=== PATIENT | male | born 1980 | race African-American/Black ===

== ENCOUNTER 2019-04-07 16:03 | Emergency (ER) | payer OTHER ==
[2019-04-07 16:17] VITALS: BP 113/65; PULSE 57; TEMP 98; BMI 29.0
[2019-04-07] MEDS ORDERED: SODIUM CHLORIDE 1,000 ML IV STA (16:56)
--- NOTE | 2019-04-07 17:00 | PDOC ---
History of Present Illness - General Chief Complaint: Syncope/Near Syncope Stated Complaint: SYNCOPE Time Seen by Provider: 04/07/19 16:25 - History of Present Illness Initial Comments: 04/07/19 16:59 39m with pmh of Ulcerative colitis and a hip labrum tear sent from orthopedist office for 3min episode of dizziness and diaphoresis. Has had diarrhea for the past 3-4 days. which is unusual for his disease course. Episode was unprovoked, he was just sitting on the examination table. Denies chest pain, shortness of breath, abdominal pain, nausea, vomiting. Had similar episode in the past that self-resolved. Used to be on medication for his UC but had to stop due to increased number of infections. Patient now asymptomatic. Past History - Past Medical History Allergies/Adverse Reactions: Allergies Allergy/AdvReac Type Severity Reaction Status Date / Time No Known Allergies Allergy Verified 04/07/19 16:09 Home Medications: Ambulatory Orders NK [No Known Home Medication] 04/07/19 COPD: No GI Disorders: Yes (uc) - Psycho Social/Smoking Cessation Hx Smoking History: Never smoked Have you smoked in the past 12 months: No Information on smoking cessation initiated: No Hx Alcohol Use: No Drug/Substance Use Hx: No Review of Systems - Review of Systems Able to Perform ROS?: Yes Is the patient limited Syriac proficient: No Constitutional: No: Symptoms Reported HEENTM: No: Symptoms Reported Respiratory: No: Symptoms reported Cardiac (ROS): No: Symptoms Reported ABD/GI: No: Symptoms Reported : No: Symptoms Reported Musculoskeletal: No: Symptoms Reported Integumentary: No: Symptoms Reported Neurological: Yes: See HPI All Other Systems: Reviewed and Negative *Physical Exam - Vital Signs Last Vital Signs Temp Pulse Resp BP Pulse Ox 98 F 57 L 18 113/65 100 04/07/19 16:13 04/07/19 16:13 04/07/19 16:13 04/07/19 16:13 04/07/19 16:13 - Physical Exam General Appearance: Yes: Nourished, Appropriately Dressed. No: Apparent Distress HEENT: positive: EOMI, Normal ENT Inspection Respiratory/Chest: positive: Lungs Clear, Normal Breath Sounds. negative: Chest Tender, Respiratory Distress Cardiovascular: positive: Regular Rhythm, Regular Rate, S1, S2 Gastrointestinal/Abdominal: positive: Normal Bowel Sounds, Flat, Soft. negative : Tender Extremity: positive: Normal Capillary Refill, Normal Inspection, Normal Range of Motion Integumentary: positive: Normal Color, Dry, Warm Neurologic: positive: Fully Oriented, Alert, Normal Mood/Affect ED Treatment Course - LABORATORY CBC & Chemistry Diagram: 04/07/19 17:05 04/07/19 17:05 Medical Decision Making - Medical Decision Making 04/07/19 17:14 39m with pmh of Ulcerative colitis and a hip labrum tear sent from orthopedist office for 3min episode of dizziness and diaphoresis. EKG: Sinus bradycardia which is normal for him. Will r/o CAD with trops but this is likely vasovagal, related to his recent episodes of diarrhea. Discharge - Discharge Information Problems reviewed: Yes Clinical Impression/Diagnosis: Pre-syncope Condition: Improved Disposition: HOME - Admission No - Follow up/Referral Referrals: ON STAFF,NOT [Primary Care Provider] - Cristofer Jean-Baptiste MD [Staff Physician] - - Patient Discharge Instructions Patient Printed Discharge Instructions: DI for Syncope in Adults (Fainting) Additional Instructions: Follow up with lacquer coater Dr. Jean-Baptiste as soon as you can set up an appointment. Follow up with your primary care physician within the next 3 days. Come back to the emergency department for any new, worsening or concerning symptom - Post Discharge Activity
[2019-04-07 17:29] LABS: BASO % 0.7 % (0-2.0); EOS % 5.4 % (0-4.5); HEMATOCRIT 42.3 % (35.4-49); HEMOGLOBIN 13.8 GM/dL (11.7-16.9); LYMPH % 23.1 % (8-40); MCH 30.1 pg (25.7-33.7); MCHC 32.6 g/dl (32.0-35.9); MEAN CELL VOLUME 92.3 fl (80-96); MONO % 3.8 % (3.8-10.2); RBC 4.58 M/mm3 (4.00-5.60); RDW 12.9 % (11.9-15.9); WHITE BLOOD COUNT 9.7 K/mm3 (4.0-10.0)
[2019-04-07 19:06] LABS: MEAN PLT VOLUME 11.3 fl (7.5-11.1)
[2019-04-07 19:07] LABS: PLATELET COUNT 222 K/MM3 (134-434)
--- NOTE | 2019-04-07 19:12 | PDOC ---
Attending Attestation - Resident Resident Name: Bruno Mojica - ED Attending Attestation I have performed the following: I have examined & evaluated the patient, The case was reviewed & discussed with the resident, I agree w/resident's findings & plan, Exceptions are as noted - HPI HPI: 04/07/19 19:11 39 years old, history of mild ulcerative colitis has had diarrhea for the last several days 39 years old with presyncopal event has had similar previous events in the past no pain no fever describes the symptoms as mild normally would not seek medical attention while in his orthopedics office felt dizzy lightheaded laid down symptoms lasted a few minutes and then resolved no loss of consciousness - Physicial Exam PE: 04/07/19 19:12 Vitals: Triage Vital signs reviewed General Appearance: No acute distress, well nourished well developed, Head: Atraumatic, Neck: Supple; no Nucal rigidity Chest Wall: Nontender Cardiac: Regular rate and rhythym, no murmurs, no rubs, no gallops, Lungs: Clear to auscultation bilateral, good air movement bilaterally, Abdomen: Soft, non distended, normal bowel sounds, non tender to palpation Extremities: Full range of motion to all extremities, no cyanosis, clubbing, or edema Skin: Warm and dry, no rashes or lesions, no rash, no petechiae Neuro: AOX3; cranial Nerves 2-12 grossly intact, strength intact to all extremities, sensation intact to all extremities, gait normal Psych: Normal mood, normal affect - Medical Decision Making well-appearing no apparent distress with presyncopal episode in the context of recent mild diarrhea no fever no white count no abdominal pain on examination EKG within normal limits no evidence of WPW Brugada prolonged QT Patient will follow-up with Dr. Jean-Baptiste cardiology this week Findings, need for follow-up and strict return instructions discussed with patient. Heart Score/ECG Review - ECG Impressions Comment:: 04/07/19 19:[address] elevations no T wave inversions no evidence of WPW, Brugada, prolonged QT
[2019-04-07 19:46] LABS: ALBUMIN 3.6 g/dl (3.4-5.0); BILIRUBIN,TOTAL 0.9 mg/dL (0.2-1); BLOOD UREA NITROGEN 8.6 mg/dL (7-18); CALCIUM 9.2 mg/dL (8.5-10.1); CREATININE 1.1 mg/dL (0.55-1.3); POTASSIUM 4.3 mmol/L (3.5-5.1); TOT PROT 6.9 g/dl (6.4-8.2)
--- NOTE | 2019-04-08 10:39 | EKG ---
Test Reason : Blood Pressure : / mmHG Vent. Rate : 046 BPM Atrial Rate : 046 BPM P-R Int : 174 ms QRS Dur : 092 ms QT Int : 478 ms P-R-T Axes : -02 048 038 degrees QTc Int : 418 ms SINUS BRADYCARDIA OTHERWISE NORMAL ECG NO PREVIOUS ECGS AVAILABLE Confirmed by MARRY BRADEN, AVEL ([id number]) on 04/08/2019 10:38:29 AM Referred By: Confirmed By:AVEL TUTTLE MD
== END 2019-04-07 20:02 | disposition home or self-care (01) ==
LOC: JER 16:03
PROC: 3E0337Z Introduction of Electrolytic and Water Balance Substance into Peripheral Vein, Percutaneous Approach (ICD-10-PCS; principal; 2019-04-07)
DX: R55 Syncope and collapse (principal); Z87.19 Personal history of other diseases of the digestive system
CPT/HCPCS: 36415; 80053; 84484; 85025; 93005; 93010; 99285-25; J7030